=== PATIENT | male | born 1980 | race Caucasian/White ===

== ENCOUNTER 2017-04-19 20:56 | Emergency (ER) | payer SELFPAY ==
[2017-04-19] MEDS ORDERED: KETOROLAC TROMETHAMINE INJ 30 MG/ML VIAL IV ONE (21:09)
--- NOTE | 2017-04-19 21:12 | ED.PDOC ---
History of Present Illness - General Chief Complaint: Abdominal Pain Stated Complaint: right side abdmen pain Time Seen by Provider: 04/19/17 21:05 Source: patient Exam Limitations: no limitations - History of Present Illness Initial Comments: Patient presents with right sided abdominal pain for about 9 hours. It had a sudden onset after lunch. It is constant and intermittently stabbing and shooting from his RUQ to his right groin. No exacerbating nor alleviating factors. Patient has trouble sitting still. No previous abdominal surgeries. Did have a vasectomy. Had N/V x 1 and diarrhea x 1 and this did not affect the pain. No dysuria/anuria/hematuria/frequency. No previous episodes. Patient denies tobacco use but says he drinks every night. Timing/Duration: other - 9 hours Severity: moderate Improving Factors: nothing Worsening Factors: nothing Associated Symptoms: nausea/vomiting Allergies/Adverse Reactions: Allergies NO KNOWN ALLERGY Allergy (Verified 04/19/17 21:03) Home Medications: Ambulatory Orders Fluoxetine HCl [PROzac] 20 mg PO DAILY 04/19/17 Review of Systems - Review of Systems Constitutional: States: no symptoms reported EENTM: States: no symptoms reported Respiratory: States: no symptoms reported Cardiology: States: no symptoms reported Gastrointestinal/Abdominal: States: see HPI Genitourinary: States: no symptoms reported Musculoskeletal: States: no symptoms reported Skin: States: no symptoms reported Neurological: States: no symptoms reported Endocrine: States: no symptoms reported Hematologic/Lymphatic: States: no symptoms reported Past Medical History (General) - Patient Medical History Hx Seizures: No Hx Stroke: No Hx Dementia: No Hx Asthma: No Hx of COPD: No Hx Cardiac Disorders: No Hx Congestive Heart Failure: No Hx Pacemaker: No Hx Hypertension: No Hx Thyroid Disease: No Hx Diabetes: No Hx Gastroesophageal Reflux: No Hx Renal Disease: No Hx Cancer: No Hx of HIV: No Hx Hepatitis C: No Hx MRSA: No Surgical History: other - Vaccination History Hx Tetanus, Diphtheria Vaccination: - unknown Hx Influenza Vaccination: No Hx Pneumococcal Vaccination: No Immunizations Up to Date: No - Social History Hx Tobacco Use: No Hx Chewing Tobacco Use: No Hx Alcohol Use: Yes - 6 whiskey shots daily Hx Substance Use: No Hx Substance Use Treatment: No Hx Depression: Yes Feels Threatened In Home Enviroment: No Feels Threatened In a Relationship: No Hx Physical Abuse: No Hx Emotional Abuse: No Hx Suspected Abuse: No Family Medical History - Family History Mother Family History: No Known Physical Exam - Physical Exam General Appearance: Alert Ears, Nose, Throat: normal ENT inspection Neck: non-tender, full range of motion, supple Respiratory: lungs clear, normal breath sounds Cardiovascular/Chest: normal peripheral pulses, regular rate, rhythm Gastrointestinal/Abdominal: normal bowel sounds, soft, other - TTP over RUQ and RLQ. Negative Rovsing's sign. Jumping up and down did not elicit the pain. Negative psoas and obturator tests. Back Exam: no CVA tenderness Skin Exam: normal color Progress - Progress Progress: 04/19/17 21:51 wbc 12.5 No N/V/D while in ER. Patient discharged with orders to increase fluids. He has nausea medication at home. Laboratory Tests 04/19/17 04/19/17 04/19/17 21:19 21:19 21:35 WBC 12.5 H RBC 5.27 Hgb 16.1 Hct 46.6 MCV 88.5 MCH 30.6 MCHC 34.5 RDW 12.9 Plt Count 147 MPV 8.3 Absolute Neuts (auto) 10.40 H Absolute Lymphs (auto) 1.50 Absolute Monos (auto) 0.50 Absolute Eos (auto) 0.00 Absolute Basos (auto) 0.10 Neutrophils % 83.2 H Lymphocytes % 11.7 L Monocytes % 4.3 Eosinophils % 0.4 L Basophils % 0.4 Sodium 139 Potassium 3.8 Chloride 102 Carbon Dioxide 26 Anion Gap 14.8 BUN 11 Creatinine 1.04 BUN/Creatinine Ratio 10.6 Random Glucose 150 H Serum Osmolality 279.8 Calcium 9.7 Total Bilirubin 0.8 AST 34 ALT 49 Alkaline Phosphatase 58 Serum Total Protein 7.7 Albumin 4.9 Globulin 2.8 Albumin/Globulin Ratio 1.8 Urine Color Yellow Urine Appearance Clear Urine pH 7.0 Ur Specific [place] 1.020 Urine Protein Negative Urine Glucose (UA) Negative Urine Ketones Negative Urine Blood Negative Urine Nitrite Negative Urine Bilirubin Negative Urine Urobilinogen 0.2 Ur Leukocyte Esterase Negative Urine RBC 0 Urine WBC 0-1 Ur Epithelial Cells 0 Urine Bacteria 0 Departure - Departure Clinical Impression: Gastroenteritis Disposition: Discharge to Home or Self Care Condition: Good Departure Forms: ED Discharge - Pt. Copy, Patient Portal Self Enrollment Instructions: DI for Abdominal Pain-Adult Diet: resume usual diet Activity: increase activity as tolerated Referrals: Doug Tinoco MD [Primary Care Provider] - 1-2 Weeks Home Medications: Ambulatory Orders Fluoxetine HCl [PROzac] 20 mg PO DAILY 04/19/17 Additional Instructions: Increase oral fluids. Return to E.R. for temperature above 100.4, increasing pain, or failure of symptoms to resolve in 48 hours.
[2017-04-19 22:02] VITALS: BP 152/92
[2017-04-19 22:07] VITALS: TEMP 99; O2SAT 97
== END 2017-04-19 22:07 | disposition home or self-care (01) ==
LOC: ER 20:56
DX: K52.9 Noninfective gastroenteritis and colitis, unspecified (principal); F10.99 Alcohol use, unspecified with unspecified alcohol-induced disorder; F32.9 Major depressive disorder, single episode, unspecified; Z79.899 Other long term (current) drug therapy
CPT/HCPCS: 36415; 80053; 81001; 83690; 85025; 86140; 96374; 99284; J1885